=== PATIENT | male | born 1995 | race African-American/Black ===

== ENCOUNTER 2018-03-29 11:53 | Emergency (ER) | payer OTHER ==
[~2018-03-29] VITALS: Ht 180.3 cm; Wt 77.1 kg
[2018-03-29 12:11] VITALS: BP 116/59
== END 2018-03-29 12:59 | disposition home or self-care (01) ==
LOC: ER 11:56
DX: S63.692A Other sprain of right middle finger, initial encounter (principal); Z60.2 Problems related to living alone; W23.0XXA Caught, crushed, jammed, or pinched between moving objects, initial encounter; Y93.67 Activity, basketball; Y92.89 Other specified places as the place of occurrence of the external cause; Y99.8 Other external cause status
CPT/HCPCS: 73140-TC; A4606; Z7610

== ENCOUNTER 2019-12-18 11:17 | Emergency (ER) | payer OTHER ==
[~2019-12-18] VITALS: Ht 182.9 cm; Wt 79.4 kg
[2019-12-18 11:46] VITALS: BP 121/74
[2019-12-18] MEDS ORDERED: LIDOCAINE /MPF 1% VIAL 5 ML VIAL ONE (13:12)
--- NOTE | 2019-12-18 14:00 | NUR ---
SUTURING DONE BY MARTINEZ BYNUM.
--- NOTE | 2019-12-18 14:16 | NUR ---
Patient discharged to home in stable condition. Written and verbal after care instructions given. Patient verbalizes understanding of instruction.
== END 2019-12-18 14:17 | disposition home or self-care (01) ==
LOC: ER 11:17
DX: S01.511A Laceration without foreign body of lip, initial encounter (principal); Z60.2 Problems related to living alone; W50.0XXA Accidental hit or strike by another person, initial encounter; Y93.67 Activity, basketball; Y92.310 Basketball court as the place of occurrence of the external cause; Y99.8 Other external cause status
CPT/HCPCS: 12011; 99282; A6403; J3490